=== PATIENT | male | born 1985 | race Caucasian/White ===

== ENCOUNTER 2022-02-08 14:16 | Inpatient (IN) | payer BC, SELFPAY ==
[2022-02-08] VITALS (22 sets, daily range): BP systolic 105–136; BP diastolic 50–81; PULSE 99–135; RESP 15–29; TEMP 36.4–36.6; O2SAT 98–100; BMI 18.1
--- NOTE | ~2022-02-08 | US_ITS ---
EXAMINATION: US abdomen limited DATE: 02/09/2022 11:14 INDICATION: Abnormal liver function tests. TECHNIQUE: Multiple grayscale and Doppler ultrasound images of the abdomen were obtained. COMPARISON: None FINDINGS: The visualized portions of the head, body, and tail of the pancreas are normal. There is fo ricardo steatosis adjacent to the falciform ligament. No liver surface anteriorly. The gallbladder is nor mal in size. No gallstones or gallbladder wall thickening. There was no sonographic Chandra sign. The common duct is normal and measures 2 mm. IMPRESSION: 1. No etiology for abnormal liver function tests. Reviewed, dictated and finalized at location A.
--- NOTE | ~2022-02-08 | XR_ITS ---
EXAMINATION: XR chest 1V portable Exam Date/Time: 02/08/2022 15:00 CDT HISTORY: SOB, WEAKNESS Comparison: None available. RESULT: Lines, tubes, and devices: None. Lungs and pleura: Clear. Cardiomediastinal silhouette: Normal. Other: No acute osseous or upper abdominal finding. IMPRESSION: No acute cardiopulmonary process. Reviewed, dictated and finalized at location K.
--- NOTE | 2022-02-08 14:28 | ECG_ITS ---
Measurements Intervals [place] Rate: 122 P: 87 ME: 132 QRS: 129 QRSD: 99 T: 76 QT: 281 QTc: 401 Interpretive Statements SINUS TACHYCARDIA POSSIBLE RIGHT VENTRICULAR HYPERTROPHY [SOME/ALL OF: PROMINENT R IN V1, LATE TRANSITION, RAD, CONNIE, SSS] ST ELEVATION, PROBABLY EARLY REPOLARIZATION [ST ELEVATION WITH NORMALLY INFLECTED T- WAVE] NO PREVIOUS ECG AVAILABLE FOR COMPARISON Electronically Signed On 02-08-2022 20:30:00 CDT by Shannon Valentino M.D.
--- NOTE | 2022-02-08 14:39 | PC.NURSE ---
BS 225, Dr Isaac made aware
[2022-02-08 14:55] LABS: Basophils Absolute Auto 0.1 K/mm3 (0.0-0.1); Basophils Percent Auto 0.3 % (0.2-1.2); Hematocrit 50.5 % (42.0-52.0); Hemoglobin 17.7 g/dL (14.0-18.0); Immature Granulocyte Absolute 0.47 K/mm3 (0.00-0.031); Lymphocytes Absolute Auto 0.64 K/mm3 (0.9-3.2); Lymphocytes Percent Auto 2.8 % (18.3-44.2); Mean Corpuscular Hemoglobin 30.1 pg (26-34); Mean Corpuscular Volume 85.9 fl (80-100); Mean Platelet Volume 10.9 fl (7.4-10.4); Monocytes Absolute Auto 1.4 K/mm3 (0.1-0.6); Monocytes Percent Auto 6.2 % (2.6-8.5); Neutrophils Absolute Auto 20.5 K/mm3 (1.3-6.7); Neutrophils Percent Auto 88.7 % (45.5-73.1); Platelet Count Result 438 k/mm3 (150-375); Red Blood Count 5.88 M/mm3 (4.6-6.20); Red Cell Distribution Width 12.3 % (11.5-14.5); White Blood Count 23.1 K/mm3 (4.5-10.0)
--- NOTE | 2022-02-08 14:57 | PC.NURSE ---
ELAN from Dr. Isaac to give 2L NS to pt
[2022-02-08] MEDS: SODIUM CHLORIDE 0.9% IV 2,000 ML 999 ML IV CONT (15:00)
[2022-02-08 15:03] LABS: Alanine Aminotransferase 94 U/L (6-50); Albumin Level 5.7 g/dL (3.5-5.1); Alkaline Phosphatase 99 U/L (38-126); Aspartate Amino Transferase 97 U/L (17-59); Bilirubin,Total 1.5 mg/dL (0.2-1.3); Blood Urea Nitrogen 37 mg/dL (9-20); Calcium 9.8 mg/dL (8.4-10.2); Carbon Dioxide < 5 mmol/L (22-30); Chloride 91 mmol/L (98-107); Estimated CRCL calculation 48 ml/min; Estimated Glomerular Filt Rate 43; Glucose 241 mg/dL (65-110); Lipase 34 U/L (23-300); Potassium 5.7 mmol/L (3.4-5.0); Sodium 123 mmol/L (137-145)
[2022-02-08 15:07] LABS: Creatine Kinase 766 U/L (55-170)
--- NOTE | 2022-02-08 15:45 | ED.NAVMDI ---
HPI - Nausea/Vomiting/Diarrhea General Chief complaint: Nausea/Vomiting/Diarrhea Stated complaint: n/v Time Seen by Provider: 02/08/22 15:24 History of Present Illness HPI Narrative: Pt has been vomiting and feels weak and SOB and says he ran 64 miles over the weekend without proper training. Pt has not checked his blood sugar recently. Related Data Home Medications Medication Instructions Recorded Confirmed aripiprazole 5 mg tablet 5 mg PO HS 02/08/22 02/08/22 bupropion HCl 300 mg 24 hr tablet, 300 mg PO DAILY 02/08/22 02/08/22 extended release empagliflozin 25 mg tablet 25 mg PO DAILY 02/08/22 02/08/22 (Jardiance) metformin 500 mg tablet,extended 1,000 mg PO DAILY 02/08/22 02/08/22 release 24 hr metformin 500 mg tablet,extended 500 mg PO HS 02/08/22 02/08/22 release 24 hr sitagliptin 100 mg tablet (Januvia) 100 mg PO HS 02/08/22 02/08/22 Allergies Allergy/AdvReac Type Severity Reaction Status Date / Time No Known Allergies Allergy Verified 02/08/22 20:25 Review of Systems Review of Systems: All systems reviewed & are unremarkable except as noted in HPI and below PMFSH Social History Social History Alcohol intake: current Drinks per week: 2 Substance use: current Substance use type: marijuana Spiritual care concerns: No Exam Const: General: ill appearing Nutritional Appearance: thin Orientation/consciousness: patient oriented x3 Limitations: no limitations HENMT: Mouth: Yes dry mucous membranes Eyes: Conjunctivae: conjunctivae normal Cornea: corneas normal EOM: EOMs intact bilaterally Neck: Neck: normal visual inspection Chest: Chest palpation & inspection: normal inspection of the chest Resp: Effort & Inspection: normal respiratory effort Auscultation: clear to auscultation bilaterally Cardio: Rate: tachycardic Rhythm: regular rhythm GI: GI Palp: Yes Soft to palpation Auscultation: normal bowel sounds Skin: Other: poor turgor Neuro: General: patient oriented x3 Speech: normal speech Extrem: General: normal to inspection and no clubbing, cyanosis or edema Psych: Mental Status: mental status grossly normal Affect: normal affect Attitude: cooperative Course Course Emergency Course: pt improved with 2 l IVF HR down to 109, talked to Kelsey Hernandez who evaluated pt and recommended ICU discussed with Dr Simms give additional 1-2L IVF and start on insulin gtt and give 2 amps bicarb Vital Signs Vital signs: Vital Signs Temperature 97.8 F 02/08/22 14:25 Pulse Rate 135 H 02/08/22 14:25 Respiratory Rate 29 H 02/08/22 14:25 Blood Pressure 116/74 02/08/22 14:25 Pulse Oximetry 99 02/08/22 14:25 Oxygen Delivery Room Air 02/08/22 14:25 Temperature 97.5 F L 02/08/22 20:14 Pulse Rate 99 02/08/22 20:14 Respiratory Rate 22 H 02/08/22 20:14 Blood Pressure 121/70 02/08/22 20:14 Pulse Oximetry 99 02/08/22 20:14 Oxygen Delivery Room Air 02/08/22 20:14 MDM - Nausea/Vomiting/Diarrhea Lab Data Result diagrams: 02/08/22 14:40 02/08/22 17:39 Labs: Lab Results 02/08/22 02/08/22 02/08/22 Range/Units 14:34 14:40 14:40 WBC 23.1 H (4.5-10.0) K/mm3 RBC 5.88 (4.6-6.20) M/mm3 Hgb 17.7 (14.0-18.0) g/dL Hct 50.5 (42.0-52.0) % MCV 85.9 (80-100) fl MCH 30.1 (26-34) pg MCHC 35.0 (32-36) g/dl RDW 12.3 (11.5-14.5) % Plt Count 438 H (150-375) k/mm3 MPV 10.9 H (7.4-10.4) fl Immature Gran % (Auto) 2.0 H (0-0.5) % Neut % (Auto) 88.7 H (45.5-73.1) % Lymph % (Auto) 2.8 L (18.3-44.2) % Pacific % (Auto) 6.2 (2.6-8.5) % Eos % (Auto) 0.0 (0-4.4) % Baso % (Auto) 0.3 (0.2-1.2) % Lymph # (Auto) 0.64 L (0.9-3.2) K/mm3 Pacific # (Auto) 1.4 H (0.1-0.6) K/mm3 Eos # (Auto) 0.0 (0-0.3) K/mm3 Baso # (Auto) 0.1 (0.0-0.1) K/mm3 Abs Immat Gran (auto) 0.47 H (0.00-0.031) K/mm3 Absolute Neuts (auto) 20.5 H (1.3-6.7) K/mm3
[2022-02-08] MEDS: SODIUM CHLORIDE 0.9% IV 1,000 ML 999 ML IV CONT ×2 (16:04)
[2022-02-08 16:06] LABS: Mucus Urine Rare /lpf; RBC Urine 0-2 /hpf (0-2); WBC Urine 0-3 /hpf
[2022-02-08 16:07] LABS: Add Urine Microscopic? YES; Appearance Urine Clear (Clear); Bilirubin Urine 1+ (Negative); Blood Urine 2+ (Negative); Color Urine Yellow (Yellow); Glucose Urine UA 2+ mg/dL (Negative); Ketones Urine 4+ mg/dL (Negative); Leukocyte Esterase Ur Negative LEU/UL (Negative); Nitrate Urine Negative (Negative); Protein Urine 1+ mg/dL (Negative); Specific Grav Ur >= 1.030 (1.001-1.035); Urobilinogen Urine 0.2 mg/dL (<2.0); pH Urine 5.5 (5.0-9.0)
[2022-02-08 16:22] LABS: Lactic Acid Reflex 1.9 mmol/L (0.7-2.0)
[2022-02-08 16:25] LABS: Alveolar/Arterial O2 Gradient 12.8 mmHg; Base Excess ABG -24.8 mEq/l (+/-2.0); Fractional Inspired Oxygen 21 %; HCO3 ABG 4.1 mEq/l (22.0-26.0); Oxygen Content ABG 19.2 %vol (16.0-22.0); Oxygen Saturation ABG 96.4 % (95.0-100.0); Oxyhemoglobin 96.3 % THb (90.0-100.0); PO2 ABG 118.3 mmHg (80.0-100.0); PO2 FiO2 Ratio Arterial Blood 5.63 %; Total Hemoglobin 14.1 g/dL (12.0-18.0)
[2022-02-08 16:29] LABS: pH ABG 7.036 (7.350-7.450)
[2022-02-08 16:30] LABS: Device ROOM AIR; Modified Allen's Test Pass; PCO2 ABG 15.6 mmHg (35.0-45.0); Site Drawn LEFT RADIAL
[2022-02-08 16:34] LABS: Glucose Point of Care 225 mg/dl (65-105)
--- NOTE | 2022-02-08 17:00 | PM.IMHP ---
H&P: HPI History of Present Illness Date/Time: 02/08/22 17:00 Chief Complaint: Nausea, vomiting, weakness. Narrative: This is a 36-year-old male with type 2 diabetes mellitus who presented to the emergency department for evaluation of nausea, vomiting, and weakness. Over the weekend he ran and and completed the 100k [employer] run. During the run he had periods of nausea and 1 episode of emesis as well as calf cramps though he was able to finish in approximately 27 hours. Water and electrolytes were readily available throughout the course and he tried to stay hydrated. At the end of the race he consumed more water and an energy drink before driving himself home where he proceeded to sleep 15 hours. Yesterday he was able to go to work for his entire shift though he felt terrible and I am sure I over exerted myself.? Throughout the day he continued to have nausea, lightheadedness, and calf cramps. He also failed short of breath and he has noticed that he is breathing heavy with intermittent sensations of racing heart. He was afebrile with normal blood pressures on arrival to the ER though he has been tachycardic and tachypneic, exhibiting Kussmaul respirations. Pertinent labs include a white blood cell count of 23.1, sodium 123, potassium 5.7, chloride 91, carbon dioxide less than 5, BUN 37 g creatinine 1.80, glucose 241, lactic acid 1.9, total CK 766, total bilirubin 1.5, AST 97, ALT 94, and a beta hydroxybutyrate of 10.60. ABG showed a pH of 7.036, pCO2 50.6, and bicarb of 4.1. Urine was positive for 1+ protein, 2+ glucose, and 4+ ketones. He is being aggressively hydrated and is now being admitted to the ICU on insulin drip. At the time my evaluation he is feeling a bit better after receiving IV fluids and he has had an increase in urine output. Review of Systems Review of Systems: Twelve systems were reviewed. No fever, chills, or sweats. He has felt lightheaded. No syncope. No cold or flu symptoms. He denies exertional chest pain and pleuritic pain. No vomiting over the last 24 hours. He had a normal but small bowel movement earlier today. He has not noticed any blood in the stool. It does not sound as though he checks his glucose very frequently. No history of venous thromboembolism. No abdominal pain. Except as documented, all other systems were reviewed and are negative. [facility] Past Medical History Medical History (Updated 02/08/22 @ 22:54 by Miriam Dumont PA-C) Anxiety and depression Bipolar disorder Type 2 diabetes mellitus Surgical History Surgical History (Updated 02/08/22 @ 22:40 by Miriam Dumont PA-C) No history of previous surgery Family History Family History Father Acute myocardial infarction Grandparent Acute myocardial infarction Cerebrovascular accident Diabetes mellitus Chronic obstructive pulmonary disease Sibling Acute myocardial infarction Social History Social History (Updated 02/08/22 @ 22:40 by Miriam Dumont PA-C) Social History: Surrogate medical decision maker: Leonie Streeter mother. Code status: Full code. Smoking status: Never smoker Alcohol intake: current Drinks per week: 2 Substance use: current Substance use type: marijuana Additional living arrangements comments: The patient lives in his own home in [place]. He has a cat and a dog. 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. Spiritual care concerns: No Meds Home Medications and Allergies Home Medications Medication Instructions Recorded Confirmed Type aripiprazole 5 mg tablet 5 mg PO HS 02/08/22 02/08/22 History bupropion HCl 300 mg 24 hr tablet, 300 mg PO DAILY 02/08/22 02/08/22 History extended release empagliflozin 25 mg tablet 25 mg PO DAILY 02/08/22 02/08/22 History (Jardiance) metformin 500 mg tablet,extended 1,000 mg PO DAILY 02/08/22 02/08/22 History release 24 hr m
[2022-02-08] MEDS: SODIUM BICARBONATE 8.4% 50 MEQ/50 ML SYRINGE IV PUSH ×2 (17:05→23:11)
[2022-02-08 17:32] LABS: Glucose Point of Care 164 mg/dl (65-105)
[2022-02-08] MEDS: INSULIN HUMAN REGULAR (*BKC) 100 UNITS in SODIUM CHLORIDE 0.9% IV 99 ML IV CONT (17:42)
[2022-02-08 17:58] LABS: Blood Urea Nitrogen 30 mg/dL (9-20); Calcium 7.3 mg/dL (8.4-10.2); Carbon Dioxide < 5 mmol/L (22-30); Chloride 102 mmol/L (98-107); Estimated CRCL calculation 77 ml/min; Estimated Glomerular Filt Rate > 60; Glucose 159 mg/dL (65-110); Magnesium 1.9 mg/dL (1.6-2.3); Phosphorus 2.5 mg/dL (2.5-4.5); Potassium 5.4 mmol/L (3.4-5.0); Sodium 127 mmol/L (137-145)
[2022-02-08 18:46] LABS: Glucose Point of Care 142 mg/dl (65-105)
[2022-02-08 19:41] LABS: Glucose Point of Care 126 mg/dl (65-105)
[2022-02-08] MEDS: KCL 20 MEQ/D5/0.45% SOD CHL 1,000 ML 150 ML IV CONT (21:16)
[2022-02-08 21:19] LABS: Glucose Point of Care 96 mg/dl (65-105)
[2022-02-08 22:38] LABS: Anion Gap 21 mmol/L (8-16); Blood Urea Nitrogen 27 mg/dL (9-20); Carbon Dioxide 6 mmol/L (22-30); Chloride 101 mmol/L (98-107); Estimated CRCL calculation 89 ml/min; Estimated Glomerular Filt Rate > 60; Glucose 108 mg/dL (65-110); Potassium 5.1 mmol/L (3.4-5.0); Sodium 128 mmol/L (137-145)
[2022-02-08 23:15] LABS: Alanine Aminotransferase 67 U/L (6-50); Albumin Level 4.2 g/dL (3.5-5.1); Alkaline Phosphatase 73 U/L (38-126); Aspartate Amino Transferase 72 U/L (17-59); Bilirubin,Total 1.2 mg/dL (0.2-1.3)
[2022-02-08 23:16] LABS: Glucose Point of Care 127 mg/dl (65-105)
[2022-02-08 23:16] LABS: Glucose Point of Care 107 mg/dl (65-105)
[2022-02-09] VITALS (13 sets, daily range): BP systolic 97–130; BP diastolic 52–84; PULSE 77–889; RESP 16–24; TEMP 36.4–36.9; O2SAT 99–100; BMI 18.1
[2022-02-09] MEDS: ARIPiprazole 5 MG TABLET PO ×2 (00:03→20:05)
[2022-02-09 01:14] LABS: Glucose Point of Care 144 mg/dl (65-105)
[2022-02-09 01:14] LABS: Glucose Point of Care 144 mg/dl (65-105)
[2022-02-09 02:19] LABS: Glucose Point of Care 175 mg/dl (65-105)
[2022-02-09 02:37] LABS: Anion Gap 20 mmol/L (8-16); Blood Urea Nitrogen 23 mg/dL (9-20); Calcium 8.1 mg/dL (8.4-10.2); Carbon Dioxide 9 mmol/L (22-30); Chloride 101 mmol/L (98-107); Estimated CRCL calculation 99 ml/min; Estimated Glomerular Filt Rate > 60; Glucose 149 mg/dL (65-110); Potassium 4.4 mmol/L (3.4-5.0); Sodium 130 mmol/L (137-145)
[2022-02-09 03:10] LABS: Glucose Point of Care 153 mg/dl (65-105)
[2022-02-09 03:35] LABS: Thyroid Stimulating Hormone Reflex 0.663 uIU/mL (0.465-4.68)
[2022-02-09] MEDS: KCL 20 MEQ/D5/0.45% SOD CHL 1,000 ML 150 ML IV CONT ×3 (03:50→17:02)
[2022-02-09 05:01] LABS: Glucose Point of Care 140 mg/dl (65-105)
[2022-02-09 05:01] LABS: Glucose Point of Care 144 mg/dl (65-105)
[2022-02-09 06:10] LABS: Glucose Point of Care 162 mg/dl (65-105)
[2022-02-09 06:33] LABS: Anion Gap 15 mmol/L (8-16); Blood Urea Nitrogen 21 mg/dL (9-20); Calcium 8.4 mg/dL (8.4-10.2); Carbon Dioxide 13 mmol/L (22-30); Chloride 101 mmol/L (98-107); Estimated CRCL calculation 116 ml/min; Estimated Glomerular Filt Rate > 60; Glucose 138 mg/dL (65-110); Potassium 4.1 mmol/L (3.4-5.0); Sodium 129 mmol/L (137-145)
[2022-02-09 06:57] LABS: Glucose Point of Care 137 mg/dl (65-105)
[2022-02-09] MEDS: buPROPion HCL XL (24 HR) 150 MG TABCR 300 MG PO (08:03)
[2022-02-09 08:10] LABS: Glucose Point of Care 149 mg/dl (65-105)
--- NOTE | 2022-02-09 08:52 | WPDCNINT ---
Assessment and Plan Assessment and plan (1) Diabetic ketoacidosis associated with type 2 diabetes mellitus: Code(s): E11.10 - Type 2 diabetes mellitus with ketoacidosis without coma Status: Acute Assessment and Plan: Patient presented with nausea, vomiting after he ran 100 K over 27 hours over the weekend (02/05-02/06) -patient was found to be in DKA, severe metabolic acidosis, severe hypovolemia/dehydration hyponatremia, hyperkalemia, acute kidney injury -patient was fluid resuscitated aggressively -tachycardia has resolved, -acute kidney injury has resolved -patient remains acidotic -will give additional IV fluids -patient remains on insulin infusion per DKA protocol, will transition to long-acting insulin and sliding scale insulin once anion gap and acidosis resolves -nausea and vomiting has resolved (2) Acute kidney injury: Code(s): N17.9 - Acute kidney failure, unspecified Status: Acute Assessment and Plan: Resolved after aggressive fluid resuscitation (3) Dehydration: Code(s): E86.0 - Dehydration Status: Acute Assessment and Plan: Will give additional IV fluid (4) Hyperkalemia: Code(s): E87.5 - Hyperkalemia Status: Acute Assessment and Plan: Resolved, likely related to severe metabolic acidosis (5) Hyponatremia: Code(s): E87.1 - Hypo-osmolality and hyponatremia Status: Acute Assessment and Plan: Improving, will continue to monitor sodium levels (6) Anxiety and depression: Code(s): F41.9 - Anxiety disorder, unspecified; F32.A - Depression, unspecified Status: Acute Assessment and Plan: Continue Abilify and bupropion for bipolar disorder (7) Type 2 diabetes mellitus: Code(s): E11.9 - Type 2 diabetes mellitus without complications Status: Acute Assessment and Plan: Patient has a history of diabetes type 2, on metformin, Januvia and Jardiance at home -hemoglobin A1c of 7.0 on this admission Plan DVT prophylaxis: SCDs Nutrition: NPO except ice chips Code Status: Full code Critical Care Time Spent: 44 minutes Due to a high probability of clinically significant, life threatening deterioration, the patient required my highest level of preparedness to intervene emergently and I personally spent this critical care time directly and personally managing the patient. This critical care time included obtaining a history; examining the patient; pulse oximetry; ordering and review of studies; arranging urgent treatment with development of a management plan; evaluation of patient's response to treatment; frequent reassessment; and discussions with other providers. It was exclusive of separately billable procedures and treating other patients and teaching time. Please see Assessment and Plan section and the rest of the note for further information on patient assessment and treatment [employer] Consult Note Consult date: 02/09/22 Reason for consult: Diabetic ketoacidosis, severe hypovolemia, nausea, vomiting, weakness, acute kidney injury, hyperkalemia HPI: Raymond Back is a 36 year old male with past medical history of diabetes type 2, bipolar disorder, depression, anxiety presented the ED with complaints of nausea, vomiting, weakness. Patient stated that he ran and completed 100 K run any was able to finish it in 27 hours. Patient did complain of nausea, vomiting and calf cramps during the time he was running. Patient stated it was water and electrolytes readily available throughout the course of the round. He has been hydrating himself with water and energy drinks. Upon arrival to the ICU patient noted to be tachycardic, tachypneic, WBC count of 23, sodium of 123, potassium of 5.7, CO2 < 5, BUN 37, creatinine of 1.8, glucose 241, lactic acid 1.9, total CK 766, elevated AST ALT, total bili of 1.5, beta hydroxybutyrate was elevated, ABG showed a pH of 7.03, pCO2 of 50 and bicarb of 4.1. Patient
[2022-02-09] MEDS: ACETAMINOPHEN 325 MG TABLET 650 MG PO (08:54)
[2022-02-09 08:58] LABS: Glucose Point of Care 124 mg/dl (65-105)
[2022-02-09 10:03] LABS: Glucose Point of Care 129 mg/dl (65-105)
[2022-02-09] MEDS: SODIUM CHLORIDE 0.9% IV 500 ML IV CONT (10:03)
[2022-02-09 10:40] LABS: Basophils Percent Auto 0.1 % (0.2-1.2); Eosinophils Percent Auto 0.2 % (0-4.4); Hematocrit 38.1 % (42.0-52.0); Hemoglobin 13.4 g/dL (14.0-18.0); Immature Granulocyte Absolute 0.08 K/mm3 (0.00-0.031); Lymphocytes Absolute Auto 0.86 K/mm3 (0.9-3.2); Lymphocytes Percent Auto 10.6 % (18.3-44.2); Mean Corpuscular HGB Conc 35.2 g/dl (32-36); Mean Corpuscular Hemoglobin 29.9 pg (26-34); Mean Platelet Volume 10.7 fl (7.4-10.4); Monocytes Percent Auto 11.8 % (2.6-8.5); Neutrophils Absolute Auto 6.2 K/mm3 (1.3-6.7); Neutrophils Percent Auto 76.3 % (45.5-73.1); Platelet Count Result 221 k/mm3 (150-375); Red Blood Count 4.48 M/mm3 (4.6-6.20); Red Cell Distribution Width 12.3 % (11.5-14.5); White Blood Count 8.1 K/mm3 (4.5-10.0)
[2022-02-09 10:51] LABS: Alanine Aminotransferase 57 U/L (6-50); Albumin Level 3.6 g/dL (3.5-5.1); Alkaline Phosphatase 57 U/L (38-126); Anion Gap 14 mmol/L (8-16); Aspartate Amino Transferase 46 U/L (17-59); Bilirubin,Total 1.5 mg/dL (0.2-1.3); Blood Urea Nitrogen 19 mg/dL (9-20); Calcium 8.5 mg/dL (8.4-10.2); Carbon Dioxide 13 mmol/L (22-30); Chloride 101 mmol/L (98-107); Creatine Kinase 260 U/L (55-170); Estimated CRCL calculation 112 ml/min; Estimated Glomerular Filt Rate > 60; Glucose 129 mg/dL (65-110); Sodium 128 mmol/L (137-145)
[2022-02-09 10:59] LABS: Glucose Point of Care 133 mg/dl (65-105)
[2022-02-09 12:01] LABS: Glucose Point of Care 147 mg/dl (65-105)
[2022-02-09 12:56] LABS: Glucose Point of Care 135 mg/dl (65-105)
[2022-02-09 14:00] LABS: Glucose Point of Care 125 mg/dl (65-105)
[2022-02-09 14:44] LABS: Anion Gap 12 mmol/L (8-16); Blood Urea Nitrogen 17 mg/dL (9-20); Calcium 8.5 mg/dL (8.4-10.2); Carbon Dioxide 15 mmol/L (22-30); Chloride 102 mmol/L (98-107); Estimated CRCL calculation 129 ml/min; Estimated Glomerular Filt Rate > 60; Glucose 128 mg/dL (65-110); Potassium 3.8 mmol/L (3.4-5.0); Sodium 129 mmol/L (137-145)
[2022-02-09 15:02] LABS: Glucose Point of Care 136 mg/dl (65-105)
[2022-02-09] MEDS: LACTATED RINGERS 1,000 ML 500 ML IV CONT (15:02)
[2022-02-09 15:56] LABS: Glucose Point of Care 128 mg/dl (65-105)
[2022-02-09 17:02] LABS: Glucose Point of Care 123 mg/dl (65-105)
[2022-02-09 18:05] LABS: Glucose Point of Care 148 mg/dl (65-105)
[2022-02-09 18:26] LABS: Anion Gap 14 mmol/L (8-16); Blood Urea Nitrogen 14 mg/dL (9-20); Calcium 8.3 mg/dL (8.4-10.2); Carbon Dioxide 14 mmol/L (22-30); Chloride 101 mmol/L (98-107); Estimated CRCL calculation 129 ml/min; Estimated Glomerular Filt Rate > 60; Glucose 122 mg/dL (65-110); Potassium 3.6 mmol/L (3.4-5.0); Sodium 129 mmol/L (137-145)
[2022-02-09 18:56] LABS: Glucose Point of Care 100 mg/dl (65-105)
[2022-02-09] MEDS: SODIUM BICARBONATE 8.4% 50 MEQ/50 ML SYRINGE IV PUSH (20:05)
[2022-02-09 20:18] LABS: Glucose Point of Care 122 mg/dl (65-105)
[2022-02-09 21:14] LABS: Glucose Point of Care 130 mg/dl (65-105)
[2022-02-09 21:58] LABS: Glucose Point of Care 124 mg/dl (65-105)
[2022-02-09 22:12] LABS: Anion Gap 7 mmol/L (8-16); Blood Urea Nitrogen 11 mg/dL (9-20); Calcium 8.3 mg/dL (8.4-10.2); Carbon Dioxide 17 mmol/L (22-30); Chloride 101 mmol/L (98-107); Estimated CRCL calculation 129 ml/min; Estimated Glomerular Filt Rate > 60; Glucose 120 mg/dL (65-110); Potassium 3.5 mmol/L (3.4-5.0); Sodium 125 mmol/L (137-145)
[2022-02-09] MEDS: INSULIN GLARGINE (*BKC) 100 UNITS/ML 8 UNITS SUB-Q (22:42)
[2022-02-09 22:47] LABS: Glucose Point of Care 129 mg/dl (65-105)
[2022-02-10] VITALS (12 sets, daily range): BP systolic 112–128; BP diastolic 64–82; PULSE 79–107; RESP 14–21; TEMP 36.3–36.9; O2SAT 99–100
[2022-02-10 00:09] LABS: Glucose Point of Care 161 mg/dl (65-105)
[2022-02-10 04:26] LABS: Basophils Percent Auto 0.3 % (0.2-1.2); Eosinophils Absolute Auto 0.1 K/mm3 (0-0.3); Hematocrit 35.5 % (42.0-52.0); Hemoglobin 12.8 g/dL (14.0-18.0); Immature Granulocyte Absolute 0.06 K/mm3 (0.00-0.031); Immature Granulocyte Percent A 0.9 % (0-0.5); Lymphocytes Absolute Auto 1.55 K/mm3 (0.9-3.2); Lymphocytes Percent Auto 22.7 % (18.3-44.2); Mean Corpuscular HGB Conc 36.1 g/dl (32-36); Mean Corpuscular Volume 83.3 fl (80-100); Mean Platelet Volume 10.1 fl (7.4-10.4); Monocytes Absolute Auto 0.7 K/mm3 (0.1-0.6); Monocytes Percent Auto 10.5 % (2.6-8.5); Neutrophils Absolute Auto 4.4 K/mm3 (1.3-6.7); Neutrophils Percent Auto 64.6 % (45.5-73.1); Platelet Count Result 178 k/mm3 (150-375); Red Blood Count 4.26 M/mm3 (4.6-6.20); White Blood Count 6.8 K/mm3 (4.5-10.0)
[2022-02-10 04:40] LABS: Alanine Aminotransferase 47 U/L (6-50); Albumin Level 3.5 g/dL (3.5-5.1); Alkaline Phosphatase 57 U/L (38-126); Anion Gap 6 mmol/L (8-16); Aspartate Amino Transferase 34 U/L (17-59); Bilirubin,Total 1.1 mg/dL (0.2-1.3); Blood Urea Nitrogen 9 mg/dL (9-20); Calcium 8.5 mg/dL (8.4-10.2); Carbon Dioxide 20 mmol/L (22-30); Chloride 100 mmol/L (98-107); Creatine Kinase 116 U/L (55-170); Estimated CRCL calculation 138 ml/min; Estimated Glomerular Filt Rate > 60; Glucose 101 mg/dL (65-110); Magnesium 1.9 mg/dL (1.6-2.3); Phosphorus 1.1 mg/dL (2.5-4.5); Potassium 3.4 mmol/L (3.4-5.0); Sodium 126 mmol/L (137-145)
[2022-02-10] MEDS: buPROPion HCL XL (24 HR) 150 MG TABCR 300 MG PO (08:37)
[2022-02-10] MEDS: POTASSIUM PHOS/SODIUM PHOS 250 MG TABLET PO ×2 (08:37→16:33)
[2022-02-10 08:45] LABS: Glucose Point of Care 104 mg/dl (65-105)
--- NOTE | 2022-02-10 11:07 | PCFNICU ---
ICU Rounding Note: Pt current nutrition is DBCC. Last recorded weight is 66.8 kg, up from 62.5 kg on admit. Bowel Motility:No BM reported. Labs Reviewed:Na 126, Cr 0.6,Hct 35.5,Hgb 12.8 Meds Noted:Wellbutrin Skin: WNL Additional Notes: Diet order has advanced to a diabetic diet. Tolerating diet. Referral made for outpatient Dietitian and Anatomic Pathology Manager. No further nutritional interventions.
--- NOTE | 2022-02-10 12:05 | WPDINTPN ---
Progress Note: A&P Assessment and Plan (1) Diabetic ketoacidosis associated with type 2 diabetes mellitus: Code(s): E11.10 - Type 2 diabetes mellitus with ketoacidosis without coma Status: Acute Assessment and Plan: Patient presented with nausea, vomiting after he ran 100 K over 27 hours over the weekend (02/05-02/06) -patient was found to be in DKA, severe metabolic acidosis, severe hypovolemia/dehydration hyponatremia, hyperkalemia, acute kidney injury -patient was fluid resuscitated aggressively -tachycardia has resolved, -acute kidney injury has resolved -patient was transition to long-acting insulin Lantus and sliding scale insulin overnight. -continue diabetic diet -nausea and vomiting has resolved (2) Acute kidney injury: Code(s): N17.9 - Acute kidney failure, unspecified Status: Acute Assessment and Plan: Resolved after aggressive fluid resuscitation (3) Dehydration: Code(s): E86.0 - Dehydration Status: Acute Assessment and Plan: Resolved (4) Hyperkalemia: Code(s): E87.5 - Hyperkalemia Status: Acute Assessment and Plan: Resolved, likely related to severe metabolic acidosis (5) Hyponatremia: Code(s): E87.1 - Hypo-osmolality and hyponatremia Status: Acute Assessment and Plan: Improving, will continue to monitor sodium levels (6) Anxiety and depression: Code(s): F41.9 - Anxiety disorder, unspecified; F32.A - Depression, unspecified Status: Acute Assessment and Plan: Continue Abilify and bupropion for bipolar disorder (7) Type 2 diabetes mellitus: Code(s): E11.9 - Type 2 diabetes mellitus without complications Status: Acute Assessment and Plan: Patient has a history of diabetes type 2, on metformin, Januvia and Jardiance at home -hemoglobin A1c of 7.0 on this admission Plan DVT prophylaxis: SCDs Nutrition: NPO except ice chips Patient okay to transfer out of the ICU Code Status: Full code Critical Care Time Spent: 31 minutes Due to a high probability of clinically significant, life threatening deterioration, the patient required my highest level of preparedness to intervene emergently and I personally spent this critical care time directly and personally managing the patient. This critical care time included obtaining a history; examining the patient; pulse oximetry; ordering and review of studies; arranging urgent treatment with development of a management plan; evaluation of patient's response to treatment; frequent reassessment; and discussions with other providers. It was exclusive of separately billable procedures and treating other patients and teaching time. Please see Assessment and Plan section and the rest of the note for further information on patient assessment and treatment Subjective Date/time seen: 02/10/22 12:05 Interval history: Reason for consult: Diabetic ketoacidosis, severe metabolic acidosis, nausea, vomiting, weakness, acute kidney injury, hyperkalemia. Patient was admitted on 02/08/2022 02/10/2022 patient seen and examined the ICU, patient was transitioned from insulin infusion to Lantus and sliding scale insulin overnight after his anion gap closed and his acidosis resolved. -patient states he feels much better, able to tolerate p.o. diet, hemodynamically stable, denies any chest pain, shortness a breath, abdominal pain, nausea, vomiting. Review of Systems Review of Systems: All systems reviewed & are unremarkable except as noted in HPI and below Exam Narrative: General: Pleasant personality, in no acute distress HEENT:? Pupils equal and reactive, sclera is clear, moist oral mucosa Neck:? Supple, no lymphadenopathy Respiratory:? Clear to auscultation bilaterally, no wheezing, adequate air entry Cardiac:? S1-S2 is normal, regular rate and rhythm Abdomen:? Soft, nontender, nondistended with normoactive bowel sounds Extremities:? No edema, palpab
[2022-02-10 12:25] LABS: Glucose Point of Care 152 mg/dl (65-105)
--- NOTE | 2022-02-10 14:12 | PC.NURSE ---
This patient, Raymond Back, was transferred to [facility] on 02/10/22 at 1412. Personal belongings sent with patient. Report given to Jamie. Appropriate documentation sent with patient.
[2022-02-10 17:20] LABS: Glucose Point of Care 98 mg/dl (65-105)
[2022-02-10] MEDS: ARIPiprazole 5 MG TABLET PO (20:03)
[2022-02-10 21:07] LABS: Glucose Point of Care 171 mg/dl (65-105)
[2022-02-11 04:05] VITALS: BP 112/69; PULSE 104; RESP 18; TEMP 36.3; O2SAT 99
--- NOTE | 2022-02-11 07:58 | PM.IMPN ---
Progress Note: A&P Assessment and Plan (1) Diabetic ketoacidosis associated with type 2 diabetes mellitus: Code(s): E11.10 - Type 2 diabetes mellitus with ketoacidosis without coma Status: Acute Assessment and Plan: Hemoglobin A1c was 7 No insulin needed for 24 hours, continue to monitor (2) Acute kidney injury: Code(s): N17.9 - Acute kidney failure, unspecified Status: Acute Assessment and Plan: Resolved after aggressive fluid resuscitation (3) Dehydration: Code(s): E86.0 - Dehydration Status: Acute Assessment and Plan: Resolved (4) Hyperkalemia: Code(s): E87.5 - Hyperkalemia Status: Acute Assessment and Plan: Improving, replace and recheck tomorrow (5) Hyponatremia: Code(s): E87.1 - Hypo-osmolality and hyponatremia Status: Acute Assessment and Plan: Resolved, monitor (6) Anxiety and depression: Code(s): F41.9 - Anxiety disorder, unspecified; F32.A - Depression, unspecified Status: Acute Assessment and Plan: Continue Abilify and bupropion for bipolar disorder (7) Type 2 diabetes mellitus: Code(s): E11.9 - Type 2 diabetes mellitus without complications Status: Acute Assessment and Plan: Patient has a history of diabetes type 2, on metformin, Januvia and Jardiance at home -hemoglobin A1c of 7.0 on this admission Plan DVT prophylaxis with SCDs GI prophylaxis not indicated Code status full code Subjective Date/time seen: 02/11/22 07:58 Interval history: Patient is eager to go home. No overnight events noted. No chest pain or shortness of breath. No nausea, vomiting or diarrhea. No fevers or chills. Review of Systems Review of Systems: 12 point review of systems was assessed and was negative except as noted in the HPI Exam Narrative: General: No acute distress, alert and oriented per baseline HEENT: Atraumatic, normocephalic, mucous membranes moist CV: Regular rate and rhythm, S1, S2 Lungs: Clear to auscultation bilaterally, no rales or crackles noted, no wheezes, good air entry Abdomen: Soft, nontender, nondistended Extremities: Normal to inspection Skin: No rashes noted, no lesions or wounds seen Psych: Euthymic, normal affect Objective Data Vital Signs Vital Signs: Vital Signs - 24 hr 02/10/22 08:31 02/10/22 08:00 02/10/22 08:00 Temperature 98 F Pulse Rate 87 86 80 Respiratory Rate 20 20 Blood Pressure 122/77 Pulse Oximetry 100 100 Oxygen Delivery Room Air 02/10/22 08:00 02/10/22 10:00 02/10/22 10:00 Temperature Pulse Rate 79 80 Respiratory Rate 20 Blood Pressure 128/82 Pulse Oximetry 100 Oxygen Delivery Room Air 02/10/22 14:22 02/10/22 19:17 02/10/22 20:00 Temperature 98.5 F 97.3 F L Pulse Rate 98 87 Respiratory Rate 14 18 Blood Pressure 127/72 114/64 Pulse Oximetry 100 100 Oxygen Delivery Room Air 02/11/22 04:05 Temperature 97.3 F L Pulse Rate 104 H Respiratory Rate 18 Blood Pressure 112/69 Pulse Oximetry 99 Oxygen Delivery Intake/Output Intake/Output: Intake & Output 02/08/22 02/09/22 02/10/22 02/11/22 23:59 23:59 23:59 23:59 Intake Total 4000 4372 1930 400 Output Total 950 3150 4800 900 Balance 3050 1402 -5665 -500 Meds/Results Medications: Active Medications Generic Name Dose Route Start Last Admin Trade Name Freq PRN Reason Stop Dose Admin Acetaminophen 650 mg 02/09/22 08:17 02/09/22 08:54 Acetaminophen 325 Mg Tablet PO 650 mg Q6H PRN Administration Mild Pain (1-3) or Fever Aripiprazole 5 mg 02/08/22 23:10 02/10/22 20:03 Aripiprazole 5 Mg Tablet PO 5 mg HS KIM Administration Bupropion HCl 300 mg 02/09/22 09:00 02/10/22 08:37 Bupropion Hcl Xl (24 Hr) 150 Mg Tabcr PO 300 mg DAILY KIM Administration Dextrose 12.5 gm 02/08/22 16:58 Dextrose 50% 25 Gm/50 Ml Syringe IV PUSH PRN PRN Hypoglycemia Protocol
[2022-02-11 08:36] LABS: Basophils Percent Auto 0.5 % (0.2-1.2); Eosinophils Absolute Auto 0.1 K/mm3 (0-0.3); Eosinophils Percent Auto 1.2 % (0-4.4); Hematocrit 37.7 % (42.0-52.0); Hemoglobin 13.6 g/dL (14.0-18.0); Immature Granulocyte Absolute 0.05 K/mm3 (0.00-0.031); Immature Granulocyte Percent A 1.2 % (0-0.5); Lymphocytes Absolute Auto 1.06 K/mm3 (0.9-3.2); Mean Corpuscular HGB Conc 36.1 g/dl (32-36); Mean Corpuscular Hemoglobin 30.4 pg (26-34); Mean Corpuscular Volume 84.2 fl (80-100); Monocytes Absolute Auto 0.4 K/mm3 (0.1-0.6); Monocytes Percent Auto 8.6 % (2.6-8.5); Neutrophils Absolute Auto 2.6 K/mm3 (1.3-6.7); Neutrophils Percent Auto 62.5 % (45.5-73.1); Platelet Count Result 175 k/mm3 (150-375); Red Blood Count 4.48 M/mm3 (4.6-6.20); Red Cell Distribution Width 12.2 % (11.5-14.5); White Blood Count 4.1 K/mm3 (4.5-10.0)
[2022-02-11] MEDS: buPROPion HCL XL (24 HR) 150 MG TABCR 300 MG PO (08:38)
[2022-02-11 08:46] LABS: Alanine Aminotransferase 43 U/L (6-50); Albumin Level 3.7 g/dL (3.5-5.1); Alkaline Phosphatase 60 U/L (38-126); Anion Gap 15 mmol/L (8-16); Aspartate Amino Transferase 31 U/L (17-59); Bilirubin,Total 1.1 mg/dL (0.2-1.3); Blood Urea Nitrogen 12 mg/dL (9-20); Calcium 8.6 mg/dL (8.4-10.2); Carbon Dioxide 24 mmol/L (22-30); Chloride 97 mmol/L (98-107); Estimated CRCL calculation 143 ml/min; Estimated Glomerular Filt Rate > 60; Glucose 117 mg/dL (65-110); Magnesium 1.9 mg/dL (1.6-2.3); Phosphorus 2.1 mg/dL (2.5-4.5); Potassium 3.2 mmol/L (3.4-5.0); Sodium 136 mmol/L (137-145)
[2022-02-11 08:46] LABS: Glucose Point of Care 108 mg/dl (65-105)
[2022-02-11 12:15] LABS: Glucose Point of Care 154 mg/dl (65-105)
[2022-02-11 14:15] VITALS: BP 114/69; PULSE 94; RESP 14; TEMP 36.5; O2SAT 100
[2022-02-11] MEDS: POTASSIUM CHLORIDE 20 MEQ TABLET 40 MEQ PO (14:23)
[2022-02-11 17:27] LABS: Glucose Point of Care 107 mg/dl (65-105)
[2022-02-11] MEDS: polyethylene glycoL 3350 17 GM POWD.PACK PO (18:28)
[2022-02-11 19:26] VITALS: BP 114/66; PULSE 85; RESP 16; TEMP 36.9; O2SAT 100
[2022-02-11] MEDS: ARIPiprazole 5 MG TABLET PO (21:43)
[2022-02-12 04:57] LABS: Basophils Percent Auto 0.8 % (0.2-1.2); Eosinophils Absolute Auto 0.2 K/mm3 (0-0.3); Eosinophils Percent Auto 3.8 % (0-4.4); Hematocrit 36.5 % (42.0-52.0); Hemoglobin 12.9 g/dL (14.0-18.0); Immature Granulocyte Absolute 0.07 K/mm3 (0.00-0.031); Immature Granulocyte Percent A 1.3 % (0-0.5); Lymphocytes Absolute Auto 1.86 K/mm3 (0.9-3.2); Lymphocytes Percent Auto 35.4 % (18.3-44.2); Mean Corpuscular HGB Conc 35.3 g/dl (32-36); Mean Corpuscular Hemoglobin 29.3 pg (26-34); Mean Platelet Volume 10.2 fl (7.4-10.4); Monocytes Absolute Auto 0.6 K/mm3 (0.1-0.6); Monocytes Percent Auto 11.4 % (2.6-8.5); Neutrophils Absolute Auto 2.5 K/mm3 (1.3-6.7); Neutrophils Percent Auto 47.3 % (45.5-73.1); Platelet Count Result 185 k/mm3 (150-375); Red Cell Distribution Width 11.9 % (11.5-14.5); White Blood Count 5.3 K/mm3 (4.5-10.0)
[2022-02-12 05:23] VITALS: BP 109/73; PULSE 87; RESP 16; TEMP 36.6; O2SAT 100
[2022-02-12 05:34] LABS: Alanine Aminotransferase 39 U/L (6-50); Albumin Level 3.6 g/dL (3.5-5.1); Alkaline Phosphatase 56 U/L (38-126); Anion Gap 16 mmol/L (8-16); Aspartate Amino Transferase 25 U/L (17-59); Bilirubin,Total 0.7 mg/dL (0.2-1.3); Blood Urea Nitrogen 8 mg/dL (9-20); Calcium 8.7 mg/dL (8.4-10.2); Carbon Dioxide 26 mmol/L (22-30); Chloride 97 mmol/L (98-107); Estimated CRCL calculation 143 ml/min; Estimated Glomerular Filt Rate > 60; Glucose 122 mg/dL (65-110); Magnesium 1.9 mg/dL (1.6-2.3); Phosphorus 2.8 mg/dL (2.5-4.5); Potassium 3.4 mmol/L (3.4-5.0); Sodium 139 mmol/L (137-145)
[2022-02-12 05:52] LABS: Vancomycin Trough < 5.0 ug/mL (10.0-20.0)
--- NOTE | 2022-02-12 07:48 | PM.DS ---
DS: Admitting Diagnosis Discharge Date February 12, 2022 Admitting Diagnosis DKA DS: Discharge Diagnosis Discharge Diagnosis (1) Diabetic ketoacidosis associated with type 2 diabetes mellitus: Code(s): E11.10 - Type 2 diabetes mellitus with ketoacidosis without coma Status: Acute Assessment and Plan: Hemoglobin A1c was 7 No insulin needed for 24 hours, continue to monitor (2) Acute kidney injury: Code(s): N17.9 - Acute kidney failure, unspecified Status: Acute Assessment and Plan: Resolved after aggressive fluid resuscitation (3) Dehydration: Code(s): E86.0 - Dehydration Status: Acute Assessment and Plan: Resolved (4) Hyperkalemia: Code(s): E87.5 - Hyperkalemia Status: Acute Assessment and Plan: Improving, replace and recheck tomorrow (5) Hyponatremia: Code(s): E87.1 - Hypo-osmolality and hyponatremia Status: Acute Assessment and Plan: Resolved, monitor (6) Anxiety and depression: Code(s): F41.9 - Anxiety disorder, unspecified; F32.A - Depression, unspecified Status: Acute Assessment and Plan: Continue Abilify and bupropion for bipolar disorder (7) Type 2 diabetes mellitus: Code(s): E11.9 - Type 2 diabetes mellitus without complications Status: Acute Assessment and Plan: Patient has a history of diabetes type 2, on metformin, Januvia and Jardiance at home -hemoglobin A1c of 7.0 on this admission Plan DVT prophylaxis with SCDs GI prophylaxis not indicated Code status full code DS: Summary Hospital Course Hospital Course: 36-year-old male with type 2 diabetes mellitus who presented to the emergency department for evaluation of nausea, vomiting, and weakness. Over the weekend he ran and and completed the 100k [employer] run. During the run he had periods of nausea and 1 episode of emesis as well as calf cramps though he was able to finish in approximately 27 hours. Water and electrolytes were readily available throughout the course and he tried to stay hydrated. At the end of the race he consumed more water and an energy drink before driving himself home where he proceeded to sleep 15 hours. Yesterday he was able to go to work for his entire shift though he felt terrible and I am sure I over exerted myself.? Throughout the day he continued to have nausea, lightheadedness, and calf cramps. He also failed short of breath and he has noticed that he is breathing heavy with intermittent sensations of racing heart. He was afebrile with normal blood pressures on arrival to the ER though he has been tachycardic and tachypneic, exhibiting Kussmaul respirations. Pertinent labs include a white blood cell count of 23.1, sodium 123, potassium 5.7, chloride 91, carbon dioxide less than 5, BUN 37 g creatinine 1.80, glucose 241, lactic acid 1.9, total CK 766, total bilirubin 1.5, AST 97, ALT 94, and a beta hydroxybutyrate of 10.60. ABG showed a pH of 7.036, pCO2 50.6, and bicarb of 4.1. Urine was positive for 1+ protein, 2+ glucose, and 4+ ketones. He is being aggressively hydrated and is now being admitted to the ICU on insulin drip. At the time my evaluation he is feeling a bit better after receiving IV fluids and he has had an increase in urine output. Patient was found to be in DKA, severe metabolic acidosis, severe hypovolemia/dehydration hyponatremia, hyperkalemia, acute kidney injury. Patient was fluid resuscitated aggressively. Tachycardia has resolved, acute kidney injury has resolved, patient remains acidotic. Patient was transitioned to long-acting insulin and sliding scale insulin once anion gap and acidosis resolved. Nausea and vomiting resolved. Patient d/c in good condition with close outpatient follow up for his diabetes. Time Spent with Patient Time attestation: Total time spent providing and/or coordinating discharge services: Exam Narrative: General: No acute distress, alert and
[2022-02-12 08:25] LABS: Glucose Point of Care 138 mg/dl (65-105)
[2022-02-12] MEDS: buPROPion HCL XL (24 HR) 150 MG TABCR 300 MG PO (08:37)
[2022-02-12 11:47] LABS: Glucose Point of Care 208 mg/dl (65-105)
[2022-02-12] MEDS: INSULIN ASPART (*BKC) 100 UNITS/ML SUB-Q (12:07)
--- NOTE | 2022-02-16 06:52 | PC.NURSE ---
Out patient referral for inital DSMT and MNT [facility]
== END 2022-02-12 12:33 | disposition home or self-care (01) | DRG 638 ==
LOC: ANHED 17:30 → ANHICU 19:36 → ANH2MED 02-10 14:10
PROVIDERS: Chiropractor; Emergency Medicine; Internal Medicine; Physician Assistant; Admitting Provider Internal Medicine; Emergency Provider Emergency Medicine; PCP Family Medicine; Visit Provider Student in an Organized Health Care Education/Training Program
DX: E11.10 Type 2 diabetes mellitus with ketoacidosis without coma (principal); E87.1 Hypo-osmolality and hyponatremia; N17.9 Acute kidney failure, unspecified; E86.0 Dehydration; E87.5 Hyperkalemia; F41.9 Anxiety disorder, unspecified; R74.01 Elevation of levels of liver transaminase levels; F31.9 Bipolar disorder, unspecified; D72.829 Elevated white blood cell count, unspecified; E86.1 Hypovolemia; R00.0 Tachycardia, unspecified; Z79.899 Other long term (current) drug therapy; Z79.84 Long term (current) use of oral hypoglycemic drugs
CPT/HCPCS: 36415; 36600; 71045; 76705; 80048; 80053; 80076; 80202; 81001; 82010; 82550; 82805; 82948; 83036; 83605; 83690; 83735; 84100; 84443; 85025; 93005; 96361; 96374; 99285; A9270; J1815; J3480; J7030; J7040; J7050; J7120

== ENCOUNTER 2022-07-07 09:15 | Outpatient (RCR) | payer BC, SELFPAY ==
[2022-05-17 11:00] VITALS: BMI 21.4
[2022-05-17 12:44] VITALS: BMI 21.4
== END 2022-08-08 11:07 | disposition home or self-care (01) ==
LOC: ANHDMC 09:15
PROVIDERS: PCP Family Medicine; Visit Provider Family Medicine
DX: E11.10 Type 2 diabetes mellitus with ketoacidosis without coma (principal); Z71.3 Dietary counseling and surveillance; Z71.89 Other specified counseling
CPT/HCPCS: 97802; G0108

== ENCOUNTER 2022-11-03 09:00 | Outpatient (RCR) | payer BC, SELFPAY | END 2022-11-04 14:51 | disposition home or self-care (01) | LOC: ANHDMC 09:00 | PROVIDERS: PCP Family Medicine; Visit Provider Family Medicine | DX: E11.9 Type 2 diabetes mellitus without complications (principal); Z71.89 Other specified counseling | CPT/HCPCS: G0108 ==